=== PATIENT | male | born 1985 ===

== ENCOUNTER 2021-05-24 07:56 | Emergency (ER) | payer OTHER ==
[2021-05-24] MEDS ORDERED: Ketorolac 30 MG/ML SDV IVPUSH ONE (08:11)
[2021-05-24] MEDS ORDERED: Metoclopramide 10 MG/2 ML SDV IVPUSH ONE (08:11)
[2021-05-24] MEDS ORDERED: Sodium Chloride 0.9% 1,000 ML IV ONE (08:11)
[2021-05-24] MEDS ORDERED: diphenhydrAMINE 50 MG/ML SDV IVPUSH ONE (08:11)
[2021-05-24 08:56] LABS: BLOOD UREA NITROGEN,BUN 14 mg/dL (7.0-18.0); CHLORIDE,CL 103 mmol/L (98-107); GLUCOSE RANDOM 115 mg/dL (74-106); POTASSIUM,K 4.4 mmol/L (3.5-5.1); SODIUM,NA 141 mmol/L (136-148)
[2021-05-24 09:02] LABS: CORONAVIRUS COVID-19 NAA NEGATIVE (NEGATIVE); INFLUENZA A NAA NEGATIVE (NEGATIVE); INFLUENZA B NAA NEGATIVE (NEGATIVE)
== END 2021-05-24 10:14 | disposition home or self-care (01) ==
LOC: MW.ED 07:56
DX: R42 Dizziness and giddiness (principal); Z91.048 Other nonmedicinal substance allergy status; Z79.899 Other long term (current) drug therapy; Z20.822 Contact with and (suspected) exposure to COVID-19
CPT/HCPCS: 0240U; 36415; 70450; 71045; 80053; 83735; 84443; 84484; 85025; 86140; 96374; 96375; 99284; J1200; J1885; J2765; J7030